=== PATIENT | male | born 1965 | race Caucasian/White ===

== ENCOUNTER 2024-02-06 22:41 | Emergency (ER) | payer OTHER, SELFPAY ==
[2024-02-06 22:46] VITALS: BP 174/110
[2024-02-06 23:43] LABS: Glucose - Point of Care 100 mg/dl (70-99)
[2024-02-06] MEDS: TYLENOL 1000 MG PO (23:45)
[2024-02-06 23:53] VITALS: BMI 44.6
--- NOTE | 2024-02-07 00:06 | ED.GENMED ---
History of Present Illness
General
Chief Complaint: DVT/Possible Blood Clot
Source: patient and spouse
Exam Limitations: none
Time Seen by Provider: 02/06/24 22:54
Nursing documentation reviewed up to this point in time: agreed with
History of Present Illness
History of Present Illness:
58-year-old male history of arthritis works in a [employer] shop on his feet all day told that he needs knee replacements, presents with pain and swelling of his right calf did have a recent flight, he states he did not make his chronic issues much
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
of DVT or PE personally his father of malignancy at age 88 with a history of DVT PE
Past History
Past History
ED Past Medical History: HTN and Other (Bilateral knee arthritis)
ED Past Surgical History: None
Social History
Tobacco: Non-smoker
Alcohol: None
Drug: None
Personal:
Living: with family
Employment: Employed
Family History
Family History: Other (Father of cancer in his late 80s with DVT PE)
Review of Systems
Review of Systems
Other source history: family
All Other Systems: Not applicable
Constitutional: Denies fever or fatigue
EENT: Reports no symptoms
Respiratory: Reports no symptoms
Cardiac: Reports no symptoms
ABD/GI: Reports no symptoms
: Reports no symptoms
Musculoskeletal: Reports joint pain and muscle stiffness
Skin: Reports no symptoms
Neurological: Reports no symptoms
Psychiatric: Reports no symptoms
Phy Exam
Physical Exam
Physical Exam:
Physical Exam
General: no apparent distress, not acutely ill
Neck: No jaundice
Heart: s1/s2 regular rate and rhythm, no murmur. equal radial pulses.
Lungs: no acute respiratory distress. clear bilaterally
Neuro: alert and oriented. no focal neurological deficits
Skin: no rash
Psychiatric: well kept. interactive and cooperative
Extremities: Lower extremity edema is present most pronounced in the right calf bilateral feet appear perfused no palpable cords
Course
Orders/Labs/Results
Orders:
Orders
02/06/24 23:34
Bedside Glucose- Treatment ONCE
Oxycodone/Acetaminophen [Percocet 5/325] 1 tablet PO NOW STA
02/06/24 23:43
Acetaminophen [Tylenol] 1,000 mg .ROUTE .STK-MED ONE
02/06/24 23:44
Acetaminophen [Tylenol] 1,000 mg PO NOW STA
02/07/24 00:01
US Periph Venous LOWER Ext RT Urgent
Reason For Exam: swelling pain
Abnormal Lab Results
02/06/24
23:42
POC Glucose 100 H mg/dl
(70-99)
Vital Signs
Initial and Last Documented VS:
Initial Vital Signs
Temp Pulse Resp BP Pulse Ox
98.2 F 104 20 174/110 97
02/06/24 22:46 02/06/24 22:46 02/06/24 22:46 02/06/24 22:46 02/06/24 22:46
Last Documented Vital Signs
Temp Pulse Resp BP Pulse Ox
98.2 F 104 20 174/110 97
02/06/24 22:46 02/06/24 22:46 02/06/24 22:46 02/06/24 22:46 02/06/24 22:46
MDM/Problems Addressed
Differential Diagnosis Includes:
Peck's cyst DVT strain strain pain related to arthritis
MDM/Problems Addressed:
Calf pain
Chronic conditions affecting care:
Arthritis obesity
Acute Exacerbation and/or Progression of Chronic Illness:
Arthritis obesity
*Radiology
Radiology exam reviewed: radiology read reviewed
*Pulse Oximetry
Patient hypoxic: no
*Critical Care Note
Total Time (30-74mins, 75-104mins- exclusive of procedures): Not Applicable
Update Note
Update Note:
Received report negative DVT
ED Attending Note
-
Portions of this chart may have been created with voice recognition software.� Occasional wrong word or��sound alike� substitutions may have occurred due to the inherent limitations of voice recognition software.
Discharge Plan
Departure
Patient Disposition: Home (Routine Discharge)
Date of Disposition: 02/07/24
Time of Disposition: 01:47
Patient with high blood pressure during this ER visit?: No
Discharge Problem:
Calf pain
Instructions: Osteoarthritis
Referrals:
Kailash Carrasquillo DO [Family Provider] - Next open appointment
Activity Restrictions/Additional Instructions:
Tylenol or ibuprofen for pain
Interventions
Interventions:
*Risk Screen - Suicide Last Done: 02/06/24 22:46
*General Assessment Last Done: 02/06/24 22:46
*Neglect/Abuse Screening Last Done: 02/06/24 22:46
ED- Fall Risk Assessment Last Done: 02/06/24 22:46
*ED COVID-19 Vaccine History Last Done: 02/06/24 22:46
ED-Skin Assessment Last Done: 02/07/24 01:21
ED-Peripheral Vascular Assessment Last Done: 02/07/24 01:27
ED- Pulmonary Assessment Last Done: 02/07/24 01:21
ED- Cardiac Assessment Last Done: 02/07/24 01:21
Discharge Date and Time
Print Language: [id number]
== END 2024-02-07 02:00 | disposition home or self-care (01) ==
LOC: EMR 22:41
PROVIDERS: EMERGENCY PHYSICIAN Emergency Medicine; FAMILY PHYSICIAN Family Medicine
DX: M79.661 Pain in right lower leg (principal); M17.0 Bilateral primary osteoarthritis of knee; I10 Essential (primary) hypertension; E66.9 Obesity, unspecified
CPT/HCPCS: 99284; 82962; 93971

== ENCOUNTER 2025-08-02 18:25 | Emergency (ER) | payer OTHER, SELFPAY ==
[2025-08-02 18:29] VITALS: BP 107/85
--- NOTE | 2025-08-02 22:15 | ED.GENMED ---
History of Present Illness
General
Chief Complaint: Musculo-Skeletal Complaint
Time Seen by Provider: 08/02/25 19:55
History of Present Illness
History of Present Illness:
Patient is a 60-year-old male who was seen by his primary care doctor for worsening erythema to right hand this afternoon and diagnosed with show cheletis. He was unable to obtain prescription for topical nitroglycerin so he presented to the
emergency department for evaluation. 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 Noticed redness and dryness to his hand. Denies any fevers or chills no trauma.
Past History
Past History
ED Past Medical History: HTN and Other (Bilateral knee arthritis)
ED Past Surgical History: None
Social History
Tobacco: Non-smoker
Alcohol: None
Drug: None
Personal:
Living: with family
Employment: Employed
Family History
Family History: Other (Father of cancer in his late 80s with DVT PE)
Phy Exam
General Physical Exam
General Presentation: well appearing and no apparent distress
General Skin: warm and dry
General Habitus: normal
General Mental: alert
General Hydration: appears well hydrated
ENT Exam
ENT Exam: EOMI, pharynx normal, neck supple and normocephalic
Eye Exam
Eye Exam: PERRL, cornea clear and conjunctiva normal
Cardiovascular Exam
Cardiovascular Exam: regular rate/rhythm, no edema, no murmur and normal peripheral pulses
Pulmonary Exam
Pulmonary Exam: lungs clear, no respiratory distress, no rales, no crackles, no rhonchi, no stridor, no wheezing and no cough
Gastrointestinal Exam
Gastrointestinal Exam: normal bowel sounds, non tender, soft, no organomegaly, no pulsatile mass and non distended
Neurological Exam
Neurological Exam: alert, oriented x3, no motor deficits and speech normal
Musculoskeletal Exam
Musculoskeletal Exam: full ROM, no edema and other (Left elbow with cyst like appearance to posterior aspect)
Skin Exam
Skin Exam: normal color, warm/dry, no rash, no petechia and other (Erythematous area to right fourth finger, no swelling)
Psychiatric Exam
Psychiatric Exam: normal mood/affect
Course
Orders/Labs/Results
Orders:
Orders
08/02/25 20:13
CR Elbow - Left Min 3 Views Urgent
Comment:
Reason For Exam: swelling
CR Hand - Right 2 Views Urgent
Comment:
Reason For Exam: pain and redness to 4th finger
Vital Signs
Initial and Last Documented VS:
Initial Vital Signs
Temp Pulse Resp BP Pulse Ox
36.9 C 92 16 107/85 98
08/02/25 18:29 08/02/25 18:29 08/02/25 18:29 08/02/25 18:29 08/02/25 18:29
Last Documented Vital Signs
Temp Pulse Resp BP Pulse Ox
36.9 C 92 16 107/85 98
08/02/25 18:29 08/02/25 18:29 08/02/25 18:29 08/02/25 18:29 08/02/25 18:29
MDM/Problems Addressed
Differential Diagnosis Includes:
Patient concerned for infection and requesting imaging of his hand. An x-ray obtained and negative for any fracture or gas on my review. Discussed with patient that this is likely cheletis as diagnosed by his PCP prior to his arrival here versus
cellulitis. He does have a prescription for Keflex already that he has not begun. Encouraged him to take this prescription as directed and follow-up with his primary care physician if symptoms not improved. Patient is also reporting left elbow
swelling and he has previously had this area drained. X-ray obtained and negative for any fractures. Exam consistent with bursitis with patient has had in the past. Encouraged him to follow-up with orthopedic surgery as directed by his primary
care physician for his chronic bursitis. There is no evidence of infection on my exam.
*Pulse Oximetry
SaO2: 98
Oxygen Mode of Delivery: Room air
Patient hypoxic: no
*Critical Care Note
Total Time (30-74mins, 75-104mins- exclusive of procedures): Not Applicable
ED Attending Note
-
Portions of this chart may have been created with voice recognition software.� Occasional wrong word or��sound alike� substitutions may have occurred due to the inherent limitations of voice recognition software.
Discharge Plan
Departure
Referrals:
Kailash Carrasquillo, DO [Family Provider, Family Practice]
Interventions
Interventions:
*General Assessment Last Done: 08/02/25 20:12
*Neglect/Abuse Screening Last Done: 08/02/25 18:29
*ED COVID-19 Vaccine History Last Done: 08/02/25 20:12
*ED Influenza Vaccine History Last Done: 08/02/25 20:12
[facility] Fall Risk Assessment Tool Last Done: 08/02/25 20:12
*Risk Screen - Suicide (C-SSRS) Last Done: 08/02/25 18:29
ED-Musculoskeletal Assessment Last Done: 08/02/25 20:12
Discharge Date and Time
Print Language: [id number]
== END 2025-08-02 22:38 | disposition home or self-care (01) ==
LOC: EMR 18:25
PROVIDERS: EMERGENCY PHYSICIAN Emergency Medicine; FAMILY PHYSICIAN Family Medicine
DX: L03.011 Cellulitis of right finger (principal); M70.32 Other bursitis of elbow, left elbow; I10 Essential (primary) hypertension; M17.0 Bilateral primary osteoarthritis of knee
CPT/HCPCS: 99283; 73080; 73120